=== PATIENT | male | born 1945 | race Caucasian/White ===

== ENCOUNTER 2019-02-24 13:28 | Emergency (ER) | payer MEDICARE, OTHER ==
[~2019-02-24] VITALS: Ht 172.7 cm; Wt 82.0 kg
[~2019-02-24 13:28] MED LIST: ALBU2.5V13 IH; AMOX1TAB15 PO; ASPI-986 PO; CLOP75TA33 PO; FINA5TAB11 PO; IBUP-2028 PO; LEVO500T89 PO; LOSA50TA41 PO; PSEU120T56 PO; ROBITUSSIN PO; TAMS0.4C31 PO; TOPUD PO; [UNRECOGNIZED DRUG - OTHER] PO; [UNRECOGNIZED DRUG - OTHER] PO; [UNRECOGNIZED DRUG - OTHER] PO
[2019-02-24 15:51] VITALS: BP 122/76
== END 2019-02-24 17:15 | disposition left against medical advice (07) ==
LOC: ER 13:28
DX: Z53.21 Procedure and treatment not carried out due to patient leaving prior to being seen by health care provider (principal)